=== PATIENT | male | born 1935 | race Caucasian/White ===

== ENCOUNTER 2019-10-30 09:14 | Day surgery (SDC) | payer MEDICARE, OTHER ==
[2019-10-30] VITALS (10 sets, daily range): BP systolic 109–163; BP diastolic 60–73
[~2019-10-30] VITALS: Ht 170.2 cm; Wt 77.0 kg
[2019-10-30 10:15] LABS: BASOPHILS # (AUTO) 0.1 X10'3 (0-0.2); BASOPHILS % (AUTO) 0.8 % (0-1); EOSINOPHILS # (AUTO) 0.1 X10'3 (0-0.9); HEMATOCRIT 40.8 % (42.0-52.0); HEMOGLOBIN 14.2 g/dl (14.0-17.9); LYMPHOCYTES # (AUTO) 1.1 X10'3 (1.1-4.8); MEAN CORPUSCULAR HEMOGLOBIN 30.4 PG (27.0-31.0); MEAN CORPUSCULAR HGB CONC 34.8 g/dL (33.0-36.5); MEAN CORPUSCULAR VOLUME 87.5 FL (78-98); MEAN PLATELET VOLUME 8.6 FL (7.4-10.4); MONOCYTES # (AUTO) 0.8 X10'3 (0-0.9); MONOCYTES % (AUTO) 9.9 % (2-12); NEUTROPHILS # (AUTO) 5.6 X10'3 (1.8-7.7); NEUTROPHILS % (AUTO) 74.3 % (42-75); PLATELET COUNT 203 X10'3 (140-440); RED BLOOD COUNT 4.66 X10'6 (4.70-6.10); RED CELL DISTRIBUTION WIDTH 12.9 % (11.5-14.5); WHITE BLOOD COUNT 7.6 X10'3 (4.5-11.0)
[2019-10-30] MEDS ORDERED: CETI10TA15 PO (10:18)
[2019-10-30] MEDS ORDERED: MOME17SP BOTHNARES (10:18)
[2019-10-30] MEDS ORDERED: MULT-1141 PO (10:18)
[2019-10-30] MEDS ORDERED: NITR1PAT68 TD (10:18)
[2019-10-30] MEDS ORDERED: [UNRECOGNIZED DRUG - CODE] PO (10:18)
[2019-10-30] MEDS ORDERED: CHLO25TA10 PO (10:18)
[2019-10-30] MEDS ORDERED: GARL1TAB2 PO (10:18)
[2019-10-30] MEDS ORDERED: LOSA50TA3 PO (10:18)
[2019-10-30] MEDS ORDERED: OMEP40CA13 PO (10:18)
[2019-10-30] MEDS ORDERED: ASCO100089 PO (10:18)
[2019-10-30] MEDS ORDERED: ATOR40TA14 PO (10:18)
[2019-10-30] MEDS ORDERED: ASPI-1265 PO (10:18)
[2019-10-30 10:24] LABS: ALBUMIN 3.8 G/DL (3.4-5.0); ANION GAP 7 (8-16); BLOOD UREA NITROGEN 15 MG/DL (7-18); BUN/CREATININE RATIO 23.4 (5.4-32.0); CALCIUM 9.4 MG/DL (8.5-10.1); CHLORIDE 100 MMOL/L (99-107); CREATININE 0.64 MG/DL (0.60-1.10); GLUCOSE 103 MG/DL (70-104); MAGNESIUM 1.5 MG/DL (1.5-2.4); POTASSIUM 3.3 MMOL/L (3.5-5.1); SODIUM 138 MMOL/L (135-145); TOTAL CARBON DIOXIDE 30.6 MMOL/L (24-32); eGFR > 90 ML/MIN
[2019-10-30] MEDS ORDERED: midazolam 2 mg/2 ml injection ONE ×2 (10:37→11:18)
[2019-10-30] MEDS ORDERED: iohexol 350 MG/ML 50ML vial IV ONE ×2 (10:38→11:33)
[2019-10-30] MEDS ORDERED: heparin 1,000unit/ml 10ml vial 10 ML ONE (10:38)
[2019-10-30] MEDS ORDERED: fentaNYL/PF 50MCG/1 ML 2ML syringe ONE (10:38)
[2019-10-30] MEDS ORDERED: LIDOcaine 1% (10mg/ml)w/preservative injection 20ml MDV ONE (10:38)
[2019-10-30] MEDS ORDERED: iohexol 350MG/ML 100ml bottle IV ONE ×2 (10:38→11:44)
[2019-10-30] MEDS ORDERED: potassium Cl 20 mEq SR tablet PO STA (10:41)
[2019-10-30] MEDS ORDERED: HYDROcodone/acetaminophen 10/325mg tab PO PRN (13:30)
[2019-10-30] MEDS ORDERED: HYDROcodone/acetaminophen 5mg/325mg tablet PO PRN (13:30)
[2019-10-30] MEDS ORDERED: normal saline 1000ml 1,000 ML IV SCH (13:30)
[2019-10-30] MEDS ORDERED: ondansetron/PF 4mg/2ml inj IV PRN (13:30)
== END 2019-10-30 17:25 | disposition home or self-care (01) ==
LOC: SSTAY O 09:14 → MED 3N 09:20 → SSTAY O 17:25
PROVIDERS: ATTEND Internal Medicine Cardiovascular Disease
DX: R07.89 Other chest pain (principal); I25.10 Atherosclerotic heart disease of native coronary artery without angina pectoris; I25.82 Chronic total occlusion of coronary artery; I73.9 Peripheral vascular disease, unspecified; Z95.2 Presence of prosthetic heart valve; I50.30 Unspecified diastolic (congestive) heart failure; Z79.899 Other long term (current) drug therapy
CPT/HCPCS: 36415; 80048; 83735; 85025; 85610; 93005; 93459; 99152; 99153; C1760; C1769; C1894; J1644; J2001; J2250; J3010; Q9967; 75630; A4620; A6258